=== PATIENT | female | born 2000 | race Hispanic/Latino ===

== ENCOUNTER 2023-04-16 11:48 | Inpatient (IN) | payer OTHER ==
[2023-05-03] MEDS ORDERED: Diphenoxylate HCl/Atropine Tablet PO PRN (15:05)
[2023-05-03] MEDS ORDERED: Lidocaine 1% (PF) 30 ML VIAL SC PRN (15:05)
[2023-05-03] MEDS ORDERED: Promethazine HCl 25 MG/ML VIAL IM PRN ×2 (15:05→20:01)
[2023-05-03] MEDS ORDERED: hydrALAZINE 20 MG/ML VIAL SLOW IVP PRN (15:05)
[2023-05-03] MEDS ORDERED: Methylergonovine 0.2 MG/ML VIAL IM PRN (15:05)
[2023-05-03] MEDS ORDERED: Misoprostol 200 MCG TAB PR PRN (15:05)
[2023-05-03] MEDS ORDERED: Tranexamic Acid 1,000 MG/10 ML VIAL IVP PRN (15:05)
[2023-05-03] MEDS ORDERED: Carboprost 250 MCG/ML AMP IM PRN (15:05)
[2023-05-03] MEDS ORDERED: HYDROcodone/Acetaminophen 5/325 mg Tablet PO PRN (15:05)
[2023-05-03] MEDS ORDERED: fentaNYL 50 mcg/mL 1 mL Vial SLOW IVP PRN (15:05)
[2023-05-03] MEDS ORDERED: Ondansetron PF 4 MG/2 ML Vial IVP PRN ×2 (15:05→20:01)
[2023-05-03] MEDS ORDERED: Acetaminophen 500 MG TAB PO PRN (15:05)
[2023-05-03] MEDS ORDERED: Ibuprofen 800 MG TAB PO PRN (15:05)
[2023-05-03] MEDS ORDERED: Oxytocin 30 units/NS 500 ML 500 ML IV SCH ×3 (15:15)
[2023-05-03] MEDS ORDERED: Lactated Ringer's 1,000 ML IV SCH (15:15)
[2023-05-03] MEDS ORDERED: Penicillin G Potassium 5 MILL.UNITS in Sodium Chloride 0.9% 100 ML IVPB SCH (15:15)
[2023-05-03 16:49] LABS: Hemoglobin 10.5 g/dL (12.0-15.5); Mean Corpuscular HGB CONC 31.8 g/dL (32.0-36.0); Mean Corpuscular Hemoglobin 25.4 pg (27.0-33.0); Mean Corpuscular Volume 79.7 fl (81.6-98.3); Mean Platelet Volume 12.3 fl (7.4-10.4); Platelet Count 204 10x3/uL (150-450); RBC Distribution Width 14.9 % (11.5-14.5); Red Blood Cell (RBC) Count 4.14 10x6/uL (3.90-5.03); White Blood Cell (WBC) Count 11.9 10x3/uL (3.5-10.5)
[2023-05-03 17:23] LABS: HBSAg Index 0.14 S/CO (0-0.99); Hep B Surf Ag - L&D Non-Reactive S/CO (NonReactive); Syphilis Antibody Nonreactive (Nonreactive); Syphilis Antibody Index 0.07 S/CO (<1.00 Non-Reactive)
[2023-05-03] MEDS ORDERED: fentaNYL/Ropivacaine Epidural 100 ML ONE (19:06)
[2023-05-03] MEDS ORDERED: diphenhydrAMINE 50 MG/ML VIAL IVP PRN (20:01)
[2023-05-03] MEDS ORDERED: Moisturizing Cream (Eucerin) 113 GM JAR TOP PRN (20:01)
[2023-05-03] MEDS ORDERED: Lactated Ringer's 500 ML IV PRN (20:01)
[2023-05-03] MEDS ORDERED: Acetaminophen 325 MG TAB PO PRN (20:01)
[2023-05-03] MEDS ORDERED: Naloxone HCl 0.4 mg/ml Vial IVP PRN ×2 (20:01)
[2023-05-03] MEDS ORDERED: ePHEDrine Sulfate 50 MG/10 ML VIAL SLOW IVP PRN (20:01)
[2023-05-03] MEDS ORDERED: fentaNYL 2 mcg/Ropivacaine 0.2% Epidural 100 ML CADD EPIDURAL SCH (20:15)
[2023-05-03] MEDS ORDERED: Communication Order-Pharmacy FS SCH (20:15)
[2023-05-03] MEDS: Penicillin G 2.5 MILL.units 2.5 MILL.UNITS in Premix Bag 1 BAG IVPB SCH (20:38)
[2023-05-04] MEDS: Penicillin G 2.5 MILL.units 2.5 MILL.UNITS in Premix Bag 1 BAG IVPB SCH ×3 (01:38→07:45)
[2023-05-04 04:43] VITALS: BMI 31.5
[2023-05-04] MEDS ORDERED: Bisacodyl 10 MG SUPP PR PRN (05:57)
[2023-05-04] MEDS ORDERED: Lanolin Ointment 7 GM TUBE TOP PRN (05:57)
[2023-05-04] MEDS ORDERED: Boostrix 0.5 ML (Tdap) VIAL (>/=7 yrs of age) IM ONE (05:57)
[2023-05-04] MEDS ORDERED: Ondansetron PF 4 MG/2 ML Vial IVP PRN (05:57)
[2023-05-04] MEDS ORDERED: Milk Of Magnesia 30 ML UDCUP PO PRN (05:57)
[2023-05-04] MEDS ORDERED: Promethazine HCl 25 MG/ML VIAL IM PRN (05:57)
[2023-05-04] MEDS ORDERED: diphenhydrAMINE 25 MG CAP PO PRN (05:57)
[2023-05-04] MEDS ORDERED: HYDROcodone/Acetaminophen 5/325 mg Tablet PO PRN (05:57)
[2023-05-04] MEDS ORDERED: Benzocaine-Menthol 82.5 ML CAN TOP PRN (05:57)
[2023-05-04] MEDS ORDERED: hydrALAZINE 20 MG/ML VIAL SLOW IVP PRN (05:57)
[2023-05-04] MEDS: Ferrous Sulfate 325 MG TAB PO SCH ×2 (07:46→15:52)
[2023-05-04] MEDS: Prenatal Vitamin 1 TAB PO SCH (08:17)
[2023-05-04] MEDS: Docusate 100 MG CAP PO SCH ×2 (08:17→21:45)
[2023-05-04] MEDS ORDERED: Bupivacaine 0.25% HCL 30 ML VIAL ONE (09:00)
[2023-05-04] MEDS: Ibuprofen 800 MG TAB PO SCH ×2 (13:07→21:45)
[2023-05-05] MEDS: Ibuprofen 800 MG TAB PO SCH ×2 (05:38→14:13)
[2023-05-05] MEDS: Ferrous Sulfate 325 MG TAB PO SCH ×2 (07:16→17:00)
[2023-05-05 08:04] VITALS: BP 149/58; TEMP 97.9
[2023-05-05] MEDS: Prenatal Vitamin 1 TAB PO SCH (08:38)
[2023-05-05] MEDS: Docusate 100 MG CAP PO SCH (08:38)
== END 2023-05-05 18:40 | disposition home or self-care (01) | DRG 807 ==
LOC: CSHLD 05-03 14:39 → CSHPP 05-04 06:05
PROVIDERS: ADMIT Family Medicine; ATTEND Family Medicine
PROC: 10E0XZZ Delivery of Products of Conception, External Approach (ICD-10-PCS; principal; 2023-05-04)
PROC: 10907ZC Drainage of Amniotic Fluid, Therapeutic from Products of Conception, Via Natural or Artificial Opening (ICD-10-PCS; 2023-05-04)
PROC: 0UQMXZZ Repair Vulva, External Approach (ICD-10-PCS; 2023-05-04)
PROC: 0UQGXZZ Repair Vagina, External Approach (ICD-10-PCS; 2023-05-04)
DX: O70.0 First degree perineal laceration during delivery (principal); Z37.0 Single live birth; Z3A.40 40 weeks gestation of pregnancy
CPT/HCPCS: 85027; 86780; 86850; 86900; 86901; 87340; J2540; J2590; J3490; S0020

== ENCOUNTER 2024-06-18 18:00 | Inpatient (IN) | payer OTHER ==
[2024-06-18] MEDS ORDERED: Tranexamic Acid 1,000 MG/10 ML VIAL IVP PRN (20:27)
[2024-06-18] MEDS ORDERED: Promethazine HCl 25 MG/ML VIAL IM PRN (20:27)
[2024-06-18] MEDS ORDERED: Lidocaine 1% (PF) 30 ML VIAL SC PRN (20:27)
[2024-06-18] MEDS ORDERED: hydrALAZINE 20 MG/ML VIAL SLOW IVP PRN (20:27)
[2024-06-18] MEDS ORDERED: Misoprostol 200 MCG TAB PR PRN (20:27)
[2024-06-18] MEDS ORDERED: Ondansetron PF 4 MG/2 ML Vial IVP PRN (20:27)
[2024-06-18] MEDS ORDERED: Carboprost 250 MCG/ML AMP IM PRN (20:27)
[2024-06-18] MEDS ORDERED: Diphenoxylate HCl/Atropine Tablet PO PRN (20:27)
[2024-06-18] MEDS ORDERED: Misoprostol 100 MCG TAB VAG SCH (20:30)
[2024-06-18] MEDS ORDERED: Oxytocin 30 units/NS 500 ML 500 ML IV SCH ×2 (20:30)
[2024-06-18 21:55] LABS: Hematocrit 38.2 % (34.9-44.5); Hemoglobin 12.3 g/dL (12.0-15.5); Mean Corpuscular HGB CONC 32.2 g/dL (32.0-36.0); Mean Corpuscular Hemoglobin 26.8 pg (27.0-33.0); Mean Corpuscular Volume 83.2 fL (81.6-98.3); Mean Platelet Volume 12.1 fL (7.4-10.4); Platelet Count 191 10x3/uL (150-450); RBC Distribution Width 17.6 % (11.5-14.5); Red Blood Cell (RBC) Count 4.59 10x6/uL (3.90-5.03)
[2024-06-18 22:20] LABS: HBsAg Index 0.14 S/CO (0-0.99); Hep B Surf Ag - L&D Non-Reactive S/CO (NonReactive)
[2024-06-18 22:22] LABS: Syphilis Antibody Nonreactive (Nonreactive); Syphilis Antibody Index 0.09 S/CO (<1.00 Non-Reactive)
[2024-06-19 08:33] VITALS: BMI 29.2
[2024-06-19] MEDS ORDERED: Acetaminophen 325 MG TAB PO PRN (09:31)
[2024-06-19] MEDS ORDERED: Lactated Ringer's 500 ML IV PRN (09:31)
[2024-06-19] MEDS ORDERED: Ondansetron PF 4 MG/2 ML Vial IVP PRN ×2 (09:31→12:32)
[2024-06-19] MEDS ORDERED: Naloxone HCl 0.4 mg/ml Vial IVP PRN ×2 (09:31)
[2024-06-19] MEDS ORDERED: Moisturizing Cream (Eucerin) 113 GM JAR TOP PRN (09:31)
[2024-06-19] MEDS ORDERED: Promethazine HCl 25 MG/ML VIAL IM PRN (09:31)
[2024-06-19] MEDS ORDERED: diphenhydrAMINE 50 MG/ML VIAL IVP PRN (09:31)
[2024-06-19] MEDS ORDERED: ePHEDrine Sulfate 50 MG/10 ML VIAL SLOW IVP PRN (09:31)
[2024-06-19] MEDS ORDERED: Communication Order-Pharmacy FS SCH (09:45)
[2024-06-19] MEDS: fentaNYL 2 mcg/Ropivacaine 0.2% Epidural 100 ML CADD EPIDURAL SCH (09:54)
[2024-06-19] MEDS ORDERED: Benzocaine-Menthol 82.5 ML CAN TOP PRN (12:32)
[2024-06-19] MEDS ORDERED: Lanolin Ointment 7 GM TUBE TOP PRN (12:32)
[2024-06-19] MEDS ORDERED: hydrALAZINE 20 MG/ML VIAL SLOW IVP PRN (12:32)
[2024-06-19] MEDS ORDERED: Boostrix 0.5 ML (Tdap) VIAL (>/=7 yrs of age) IM ONE (12:32)
[2024-06-19] MEDS ORDERED: Methylergonovine 0.2 MG/ML VIAL IM PRN (12:32)
[2024-06-19] MEDS ORDERED: Preparation H Ointment 28 GM TUBE PR PRN (12:32)
[2024-06-19] MEDS ORDERED: Milk Of Magnesia 30 ML UDCUP PO PRN (12:32)
[2024-06-19] MEDS ORDERED: Bisacodyl 10 MG SUPP PR PRN (12:32)
[2024-06-19] MEDS ORDERED: diphenhydrAMINE 25 MG CAP PO PRN (12:32)
[2024-06-19] MEDS ORDERED: Misoprostol 200 MCG TAB VAG PRN (12:32)
[2024-06-19] MEDS: Oxytocin 30 units/NS 500 ML 500 ML IV SCH (12:44)
[2024-06-19] MEDS ORDERED: Oxytocin 30 units/NS 500 ML 500 ML IV SCH (12:45)
[2024-06-19] MEDS ORDERED: Bupivacaine 0.25% HCL 30 ML VIAL ONE (13:00)
[2024-06-19] MEDS: Ibuprofen 800 MG TAB PO SCH (13:41)
[2024-06-19] MEDS: Methylergonovine 0.2 MG/ML VIAL IM PRN (14:43)
[2024-06-19] MEDS: Ferrous Sulfate 325 MG TAB PO SCH (18:38)
[2024-06-19] MEDS: fentaNYL/Ropivacaine Epidural 100 ML ONE (19:54)
[2024-06-19] MEDS: Docusate 100 MG CAP PO SCH (21:11)
[2024-06-20 04:09] LABS: #Basophils 0.02 10x3/uL (0.0-0.2); #Eosinophils 0.06 10x3/uL (0.0-0.5); #Monocytes 0.76 10x3/uL (0.0-1.1); #Neutrophils 3.66 10x3/uL (1.5-8.4); %Basophils 0.3 % (0.0-2.0); %Eosinophils 0.8 % (0.0-6.0); %Lymphocytes 40.7 % (18.0-47.0); %Neutrophils 47.9 % (40.0-75.0); Hematocrit 32.5 % (34.9-44.5); Hemoglobin 10.7 g/dL (12.0-15.5); Mean Corpuscular HGB CONC 32.9 g/dL (32.0-36.0); Mean Corpuscular Hemoglobin 27.7 pg (27.0-33.0); Mean Corpuscular Volume 84.2 fL (81.6-98.3); Mean Platelet Volume 12.1 fL (7.4-10.4); Platelet Count 170 10x3/uL (150-450); RBC Distribution Width 17.8 % (11.5-14.5); Red Blood Cell (RBC) Count 3.86 10x6/uL (3.90-5.03); White Blood Cell (WBC) Count 7.6 10x3/uL (3.5-10.5)
[2024-06-20] MEDS: Prenatal Vitamin 1 TAB PO SCH (08:01)
[2024-06-20 11:32] VITALS: BP 111/70; TEMP 98.4
== END 2024-06-20 16:10 | disposition home or self-care (01) | DRG 807 ==
LOC: CSHLD 20:13 → CSHPP 06-19 17:20
PROVIDERS: ADMIT Family Medicine; ATTEND Family Medicine
PROC: 10E0XZZ Delivery of Products of Conception, External Approach (ICD-10-PCS; principal; 2024-06-19)
PROC: 10907ZC Drainage of Amniotic Fluid, Therapeutic from Products of Conception, Via Natural or Artificial Opening (ICD-10-PCS; 2024-06-19)
PROC: 10H07YZ Insertion of Other Device into Products of Conception, Via Natural or Artificial Opening (ICD-10-PCS; 2024-06-19)
DX: O36.5930 Maternal care for other known or suspected poor fetal growth, third trimester, not applicable or unspecified (principal); Z37.0 Single live birth; Z3A.38 38 weeks gestation of pregnancy; Z79.899 Other long term (current) drug therapy
CPT/HCPCS: 36415; 51702; 85025; 85027; 86780; 86850; 86900; 86901; 87340; J0665; J2210; J2590